=== PATIENT | female | born 1990 | race American Indian/Alaskan Native ===

== ENCOUNTER 2020-01-02 10:53 | Emergency (ER) | payer MEDICAID ==
[2020-01-02 11:07] VITALS: BP 118/68
[2020-01-02 12:51] LABS: Bacteria,Urine 4+ /HPF (Negative); Bilirubin,Urine NEG (Negative); Blood,Urine SM (Negative); Color,Urine Yellow (Yellow); HCG Qualitative,Urine Negative (Negative); Mucus,Urine 3+ /HPF; Urobilinogen,Urine < 2.0 mg/dL (<2.0); WBC,Urine > 182.0 /HPF (0.0-6.0)
[2020-01-02] MEDS ORDERED: ONDANSETRON 4 MG/2 ML INJ IV STA (13:19)
[2020-01-02] MEDS ORDERED: SODIUM CHLORIDE 0.9% 1000 ML 1,000 ML IV ONE ×2 (13:19→17:00)
[2020-01-02 14:12] LABS: Blood Urea Nitrogen 3 mg/dL (7-17); Calcium 9.2 mg/dL (8.4-10.2); Hemolysis Index 17
[2020-01-02 14:15] LABS: Hematocrit 36.3 % (30.3-42.9); Hemoglobin 12.1 gm/dl (10.1-14.3); Mean Corpuscular HGB Conc 33 % (30-34); Mean Corpuscular Volume 86 fl (79-97); Platelet Count 383 K/mm3 (140-440); Red Blood Count 4.24 M/mm3 (3.65-5.03); Red Cell Distribution Width 13.3 % (13.2-15.2)
[2020-01-02 14:30] LABS: BUN/Creatinine Ratio 8
[2020-01-02 14:59] LABS: Band Neutrophils # (Manual) 0.2 K/mm3; Basophils % (Manual) 0 % (0.0-1.8); Eosinophils % (Manual) 0 % (0.0-4.3); Platelet Estimate Consistent w Auto; RBC Morphology Normal; Total Cells Counted 100
--- NOTE | 2020-01-02 15:49 | Cat Scan Report ---
CT ABDOMEN AND PELVIS WITH CONTRAST HISTORY: MAIN. Acute lower abdominal pain COMPARISON: None. TECHNIQUE: CT images of the abdomen and pelvis were obtained following administration of intravenous contrast. All CT scans at this location are performed using CT dose reduction for ALARA by means of automated exposure control. CONTRAST: 100 ml of intravenous contrast administered. FINDINGS: Lungs/bones: Lung bases are clear. There is no acute osseous abnormality or significant degenerative change. Abdomen/pelvis: The liver is mildly enlarged with no focal mass identified. The gallbladder, spleen, pancreas,, kidneys, and proximal GI tract appear unremarkable. There is mild rectus abdominis diasta sis. Urinary bladder is mildly distended but otherwise unremarkable. Mild prominence and attenuation of th e uterus with mild surrounding fat stranding. No discrete mass or fluid collection. Ovaries contain t iny follicles. No acute colonic abnormality identified. IMPRESSION: 1. Mild fullness and stranding about the uterus--correlate with exam findings for any potential infec tious/inflammatory process. There is no obvious mass or collection and the ovaries contain tiny folli cles. Signer Name: Ashish Garcia MD Signed: 01/02/2020 3:44 PM Workstation Name: [id number]
[2020-01-02] MEDS ORDERED: ACETAMINOPHEN 325 MG TAB PO ONE (17:01)
[2020-01-02] MEDS ORDERED: cefTRIAXone/NS 1 GM/50 ML 1 GM/50 ML BAG IV ONE (17:01)
[2020-01-02] MEDS ORDERED: KETOROLAC 30 MG/1 ML INJ IV STA (17:13)
--- NOTE | 2020-01-02 17:16 | Emergency Department Report ---
ED Female HPI - General Chief complaint: Urogenital-Female Stated complaint: UTI Time Seen by Provider: 01/02/20 12:17 Source: patient Mode of arrival: Ambulatory Limitations: No Limitations - Related Data Previous Rx's Medication Instructions Recorded Last Taken Type Acetaminophen [8 Hour 650 mg PO Q8HR PRN #20 tablet.er 09/26/19 Unknown Rx Acetaminophen] Vit-Fe Fumar-FA [ 1 tab PO QDAY #30 tablet 09/26/19 Unknown Rx Vitamin] Allergies Allergy/AdvReac Type Severity Reaction Status Date / Time No Known Allergies Allergy Verified 04/01/16 18:14 ED Review of Systems ROS: Stated complaint: UTI Other details as noted in HPI ED Past Medical Hx - Past Medical History Previous Medical History?: Yes Hx Diabetes: Yes - Social History Smoking Status: Never Smoker Substance Use Type: None - Medications Home Medications: Home Medications Medication Instructions Recorded Confirmed Last Taken Type Acetaminophen [8 Hour 650 mg PO Q8HR PRN #20 tablet.er 09/26/19 Unknown Rx Acetaminophen] Vit-Fe Fumar-FA [ 1 tab PO QDAY #30 tablet 09/26/19 Unknown Rx Vitamin] ED Physical Exam - General Limitations: No Limitations ED Course Vital Signs 01/02/20 11:04 Temperature 97.7 F Pulse Rate 110 H Respiratory 18 Rate Blood Pressure 118/68 O2 Sat by Pulse 99 Oximetry ED Medical Decision Making - Lab Data Result diagrams: 01/02/20 13:36 01/02/20 13:36 Critical care attestation.: If time is entered above; I have spent that time in minutes in the direct care of this critically ill patient, excluding procedure time. ED Disposition Condition: Stable Referrals: HALEY CRUZ MD [Primary Care Provider] - 3-5 Days
--- NOTE | 2020-01-02 17:40 | Emergency Department Report ---
ED Abdominal Pain HPI - General Chief Complaint: Urogenital-Female Stated Complaint: UTI Time Seen by Provider: 01/02/20 12:17 Source: patient Mode of arrival: Ambulatory Limitations: No Limitations - History of Present Illness Initial Comments: 29-year-old -Hung[place] female with a past medical history of insulin- dependent diabetes presents emergency department complaining few day history of reemergence of what appears to be a urinary tract infection symptoms. States she has had 6 to 7-day check a for last 3 to 4 months and has been on a host of antibiotics to correct the issue which symptoms resolve when she is taking antibiotics and then begin to reemerge she is not yet followed with a urinary specialist for this issue. Currently she reports no hematuria but having increased urinary urgency decreased production and some burning sensation. No nausea vomiting. No hematemesis no hematochezia no chest pain, no palpitations, no fever, chills, sweats, no vaginal discharge. MD Complaint: abdominal pain Location: suprapubic Radiation: epigastric, suprapubic Migration to: suprapubic Severity: mild, moderate Quality: dull Consistency: constant Improves With: nothing Worsens With: nothing - Related Data Previous Rx's Medication Instructions Recorded Last Taken Type Acetaminophen [8 Hour 650 mg PO Q8HR PRN #20 tablet.er 09/26/19 Unknown Rx Acetaminophen] Vit-Fe Fumar-FA [ 1 tab PO QDAY #30 tablet 09/26/19 Unknown Rx Vitamin] Azithromycin [Zithromax TAB] 1,000 mg PO ONCE #2 tablet 01/02/20 Unknown Rx Nitrofurantoin Lehigh/M-Cryst 100 mg PO Q12HR #20 capsule 01/02/20 Unknown Rx [Macrobid CAP] metroNIDAZOLE [Flagyl] 2,000 mg PO ONCE #4 tablet 01/02/20 Unknown Rx Allergies Allergy/AdvReac Type Severity Reaction Status Date / Time No Known Allergies Allergy Verified 04/01/16 18:14 ED Review of Systems ROS: Stated complaint: UTI Other details as noted in HPI Comment: All other systems reviewed and negative ED Past Medical Hx - Past Medical History Previous Medical History?: Yes Hx Diabetes: Yes - Social History Smoking Status: Never Smoker Substance Use Type: None - Medications Home Medications: Home Medications Medication Instructions Recorded Confirmed Last Taken Type Acetaminophen [8 Hour 650 mg PO Q8HR PRN #20 tablet.er 09/26/19 Unknown Rx Acetaminophen] Vit-Fe Fumar-FA [ 1 tab PO QDAY #30 tablet 09/26/19 Unknown Rx Vitamin] Azithromycin [Zithromax TAB] 1,000 mg PO ONCE #2 tablet 01/02/20 Unknown Rx Nitrofurantoin Lehigh/M-Cryst 100 mg PO Q12HR #20 capsule 01/02/20 Unknown Rx [Macrobid CAP] metroNIDAZOLE [Flagyl] 2,000 mg PO ONCE #4 tablet 01/02/20 Unknown Rx ED Physical Exam - General Limitations: No Limitations General appearance: alert, in no apparent distress - Head Head exam: Present: atraumatic, normocephalic - Eye Eye exam: Present: normal appearance, PERRL - ENT ENT exam: Present: mucous membranes moist - Neck Neck exam: Present: normal inspection - Respiratory Respiratory exam: Present: normal lung sounds bilaterally. Absent: respiratory distress - Cardiovascular Cardiovascular Exam: Present: regular rate, normal rhythm. Absent: systolic murmur, diastolic murmur, rubs, gallop - GI/Abdominal GI/Abdominal exam: Present: soft, tenderness (Tenderness to the epigastric region and to the right lower quadrant of the abdomen.), normal bowel sounds. Absent: rigid (Abdomen is soft), mass, bruit, pulsatile mass - Extremities Exam Extremities exam: Present: normal inspection - Back Exam Back exam: Present: normal inspection - Neurological Exam Neurological exam: Present: alert, oriented X3 - Psychiatric Psychiatric exam: Present: normal affect, normal mood - Skin Skin exam: Present: warm, dry, intact, normal color. Absent: rash ED Course Vital Signs 01/02/20 11:04 Temperature 97.7 F Pulse Rate 110 H Respiratory 18 Rate Blood Pressure 118/68 O2 Sat by Pulse 99 Oximetry ED Medical Decision Making - Lab Data Result diagrams: 01/02/20 13:36 01/02/20 13:36 - Radiology Data Radiology results: report reviewed [facility] [address] [place] [address] Cat Scan Report Signed Patient: ISAC BRADY MR#: [id number] : 1990 Acct:[id number] Age/Sex: 29 / F ADM Date: 01/02/20 Loc: ED Attending Dr: Ordering Physician: SUZANNE HAMILTON Date of Service: 01/02/20 Procedure(s): CT abdomen pelvis w con Accession Number(s): [id number] cc: SUZANNE HAMILTON CT ABDOMEN AND PELVIS WITH CONTRAST HISTORY: MAIN. Acute lower abdominal pain COMPARISON: None. TECHNIQUE: CT images of the abdomen and pelvis were obtained following administration of intravenous contrast. All CT scans at this location are performed using CT dose reduction for ALARA by means of automated exposure control. CONTRAST: 100 ml of intravenous contrast administered. FINDINGS: Lungs/bones: Lung bases are clear. There is no acute osseous abnormality or significant degenerative change. Abdomen/pelvis: The liver is mildly enlarged with no focal mass identified. The gallbladder, spleen, pancreas,, kidneys, and proximal GI tract appear unremarkable. There is mild rectus abdominis diastasis. Urinary bladder is mildly distended but otherwise unremarkable. Mild prominence and attenuation of the uterus with mild surrounding fat stranding. No discrete mass or fluid collection. Ovaries contain tiny follicles. No acute colonic abnormality identified. IMPRESSION: 1. Mild fullness and stranding about the uterus--correlate with exam findings for any potential infectious/inflammatory process. There is no obvious mass or collection and the ovaries contain tiny follicles. Signer Name: Ashish Garcia MD Signed: 01/02/2020 3:44 PM Workstation Name: [id number] Transcribed By: JW Dictated By: Ashish Garcia MD Electronically Authenticated By: Ashish Garcia MD Signed Date/Time: 01/02/20 1544 DD/ 1541 TD/TT: - Medical Decision Making 29-year-old -Hungarian female patient presents with abdominal pain of unclear etiology. A CT scan was performed to evaluate for potential causes of the abdominal pain, however, neither the clinical exam nor the CT has identified an emergent etiology for the abdominal pain. Specifically, given the benign exam, the laboratory studies, and unremarkable CT, I have a very low suspicion for appendicitis, ischemic bowel, bowel perforation, or any other life th reatening disease. Since symptoms appear to be more correlated along with a urinary tract issue she reports no vaginal discharge no suspicion for an STD. Known history of diabetes with elevated blood sugars at current which we had a long discussion about control and infectious disease. I have discussed with the patient the level of uncertainty with undifferentiated abdominal pain and clearly explained the need to follow-up as noted on the discharge instructions, or return to the Emergency Department immediately if the pain worsens, develops fever, persistent and uncontrollable vomiting, or for any new symptoms or concerns. Critical care attestation.: If time is entered above; I have spent that time in minutes in the direct care of this critically ill patient, excluding procedure time. ED Disposition Clinical Impression: UTI (urinary tract infection), Abdominal pain Disposition: TO HOME OR SELFCARE Is pt being admited?: No Does the pt Need Aspirin: No Condition: Stable Instructions: Acute Abdominal Pain (ED), Abdominal Pain (ED) Prescriptions: metroNIDAZOLE [Flagyl] 2,000 mg PO ONCE #4 tablet Nitrofurantoin Lehigh/M-Cryst [Macrobid CAP] 100 mg PO Q12HR #20 capsule Azithromycin [Zithromax TAB] 1,000 mg PO ONCE #2 tablet Referrals: HALEY CRUZ MD [Primary Care Provider] - 3-5 Days [facility] [Provider Group] - 3-5 Days
== END 2020-01-02 18:25 | disposition home or self-care (01) ==
LOC: ED 10:53
DX: N39.0 Urinary tract infection, site not specified (principal); E11.9 Type 2 diabetes mellitus without complications; Z79.899 Other long term (current) drug therapy
CPT/HCPCS: 36415; 74177; 80048; 81001; 81025; 82140; 82962; 83690; 83735; 84100; 85007; 85025; 87086; 96361; 96365; 96375; 99284; J0696; J1885; J2405; J7030; Q9967